=== PATIENT | male | born 1970 | race Asian ===

== ENCOUNTER 2024-03-09 14:42 | Inpatient (IN) | payer BC ==
[~2024-03-09] VITALS: Ht 167.6 cm; Wt 64.5 kg
[2024-03-09 15:04] LABS: BASOPHILS % (AUTO) 0.2 % (0.0-2.0); EOSINOPHILS % (AUTO) 1.7 % (1.0-6.0); HEMATOCRIT 40.7 % (41-53); HEMOGLOBIN 12.9 g/dL (13.5-17.5); LYMPHOCYTES # (AUTO) 3.2 K/uL (1.0-4.8); LYMPHOCYTES % (AUTO) 37.8 % (22.0-44.0); MEAN CORPUSCULAR HEMOGLOBIN 26.4 pg (26.0-34.0); MEAN CORPUSCULAR HGB CONC 31.8 G/dL (31.0-37.0); MEAN CORPUSCULAR VOLUME 83 fL (80-100); MONOCYTES # (AUTO) 0.6 K/uL (0.1-1.0); MONOCYTES % (AUTO) 7.4 % (2.0-9.0); NEUTROPHILS # (AUTO) 4.4 K/uL (1.8-7.7); NEUTROPHILS % (AUTO) 52.9 % (40.0-70.0); PLATELET COUNT (AUTO) 163 K/uL (150-450); RED BLOOD CELL COUNT(AUTO) 4.89 MIL/uL (4.50-5.90); RED CELL DISTRIBUTION WIDTH 14.2 % (11.5-14.5); WHITE BLOOD COUNT (AUTO) 8.4 K/uL (4.5-11.0)
[2024-03-09] MEDS ORDERED: LABETALOL HCL 5 MG/ML 20 ML VIAL IVP PRN ×2 (15:15→16:00)
[2024-03-09] MEDS ORDERED: NiCARDipine HCL 25 MG in SODIUM CHLORIDE 0.9% 240 ML IV PRN ×2 (15:15→16:00)
[2024-03-09] MEDS ORDERED: SODIUM CHLORIDE 0.9% 100 ML ONE (15:16)
[2024-03-09] MEDS ORDERED: 0.9% SODIUM CHLORIDE 10 ML SYRINGE IVP ONE (15:16)
[2024-03-09] MEDS ORDERED: TENECTEPLASE 50 MG/10 ML KIT IVP ONE ×2 (15:16→16:01)
[2024-03-09] MEDS ORDERED: IOHEXOL 300 MG/ML 100 ML VIAL ONE (15:16)
[2024-03-09 15:17] LABS: PROTHROMBIN TIME 10.9 SEC (9.4-11.6)
[2024-03-09] MEDS: TENECTEPLASE PER STROKE PROTOCOL CLINICAL ONE ×2 (15:18→16:08)
[2024-03-09] MEDS: -PHARMACY NOTE- MISC SCH ×2 (15:18→16:09)
[2024-03-09 15:22] LABS: ANION GAP 11 mmol/L (8-16); CALCIUM, TOTAL 8.2 mg/dL (8.8-10.5); CARBON DIOXIDE 26 mmol/L (22-29); CHLORIDE 100 mmol/L (98-107); GLOMERULAR FILTR. RATE CALC > 60 mL/min (>60); GLUCOSE,RANDOM 92 mg/dL (70-110); POTASSIUM 3.6 mmol/L (3.5-5.1); SODIUM SERUM 137 mmol/L (136-145); UREA NITROGEN, BLOOD 22 mg/dL (7-18)
[2024-03-09 15:27] LABS: ALANINE AMINOTRANSFERASE 23 U/L (12-78); ALBUMIN 3.7 g/dL (3.4-5.0); ALKALINE PHOSPHATASE 52 U/L (46-116); ASPARTATE AMINOTRANSFERASE 25 U/L (15-37); BILIRUBIN,TOTAL 0.4 mg/dL (0.1-1.0); CHOL/HDL RATIO 2.9 (4.2-7.3); CHOLESTEROL 198 mg/dL (131-200); HDL CHOLESTEROL 69 mg/dL (40-60); LDL CHOL (CALC.) 108 mg/dL (0-130); TOTAL PROTEIN, SERUM 6.8 g/dL (6.4-8.2); TRIGLYCERIDES 107 mg/dL (15-150)
[2024-03-09] MEDS: ASPIRIN 325 MG TABLET PO ONE (15:35)
[2024-03-09] MEDS: CLOPIDOGREL BISULFATE 75 MG TABLET PO ONE (15:35)
[2024-03-09 15:46] LABS: TROPONIN I-HIGH SENSITIVITY 20 ng/L (<76)
[2024-03-09] MEDS: TENECTEPLASE 50 MG/10 ML KIT IVP ONE (16:15)
[2024-03-09] MEDS ORDERED: ONDANSETRON HCL 4 MG/2 ML VIAL IVP PRN (19:00)
[2024-03-09] MEDS ORDERED: ACETAMINOPHEN 325 MG TABLET PO PRN (19:00)
[2024-03-09] MEDS: DOCUSATE SODIUM 100 MG CAPSULE PO SCH (20:15)
[2024-03-09] MEDS: ATORVASTATIN CALCIUM 40 MG TABLET PO SCH (20:17)
[2024-03-09 20:45] VITALS: O2SAT 98
[2024-03-09 21:13] LABS: TROPONIN I-HIGH SENSITIVITY 23 ng/L (<76)
[2024-03-09] MEDS: CHLORHEXIDINE GLUCONATE 2% TOWELETTE [2'S/6'S] TP SCH (22:00)
[2024-03-09 23:55] LABS: TROPONIN I-HIGH SENSITIVITY 21 ng/L (<76)
[2024-03-10] VITALS: BP 100/63; PULSE 48; RESP 14; TEMP 98.1; O2SAT 98
[2024-03-10 04:00] VITALS: BP 116/79; PULSE 47; RESP 16; TEMP 97.7; O2SAT 97
[2024-03-10 06:20] LABS: BASOPHILS % (AUTO) 0.3 % (0.0-2.0); EOSINOPHILS % (AUTO) 0.7 % (1.0-6.0); HEMATOCRIT 42.5 % (41-53); HEMOGLOBIN 13.9 g/dL (13.5-17.5); LYMPHOCYTES % (AUTO) 24.4 % (22.0-44.0); MEAN CORPUSCULAR HEMOGLOBIN 26.9 pg (26.0-34.0); MEAN CORPUSCULAR HGB CONC 32.7 G/dL (31.0-37.0); MEAN CORPUSCULAR VOLUME 82 fL (80-100); MONOCYTES # (AUTO) 0.6 K/uL (0.1-1.0); NEUTROPHILS # (AUTO) 5.5 K/uL (1.8-7.7); NEUTROPHILS % (AUTO) 67.6 % (40.0-70.0); PLATELET COUNT (AUTO) 178 K/uL (150-450); RED BLOOD CELL COUNT(AUTO) 5.16 MIL/uL (4.50-5.90); RED CELL DISTRIBUTION WIDTH 14.2 % (11.5-14.5); WHITE BLOOD COUNT (AUTO) 8.1 K/uL (4.5-11.0)
[2024-03-10 06:34] LABS: TROPONIN I-HIGH SENSITIVITY 23 ng/L (<76)
[2024-03-10 06:39] LABS: ANION GAP 7 mmol/L (8-16); CALCIUM, TOTAL 8.1 mg/dL (8.8-10.5); CARBON DIOXIDE 27 mmol/L (22-29); CHLORIDE 103 mmol/L (98-107); CHOLESTEROL 207 mg/dL (131-200); CREATININE 0.76 mg/dL (0.60-1.30); GLOMERULAR FILTR. RATE CALC > 60 mL/min (>60); GLUCOSE,RANDOM 83 mg/dL (70-110); POTASSIUM 3.8 mmol/L (3.5-5.1); SODIUM SERUM 137 mmol/L (136-145); TRIGLYCERIDES 25 mg/dL (15-150); UREA NITROGEN, BLOOD 13 mg/dL (7-18)
[2024-03-10 06:52] LABS: CHOL/HDL RATIO 2.8 (4.2-7.3); HDL CHOLESTEROL 75 mg/dL (40-60); LDL CHOL (CALC.) 127 mg/dL (0-130)
[2024-03-10 08:00] VITALS: BP 121/75; PULSE 49; RESP 16; TEMP 98.3; O2SAT 92
[2024-03-10 12:00] VITALS: BP 131/89; PULSE 61; RESP 12; TEMP 98.6; O2SAT 99
[2024-03-10 16:00] VITALS: BP 118/77; PULSE 54; RESP 16; TEMP 97.8; O2SAT 100
[2024-03-10 20:00] VITALS: BP 112/73; PULSE 57; RESP 19; TEMP 98.3; O2SAT 96
[2024-03-11] VITALS (7 sets, daily range): BP systolic 101–142; BP diastolic 58–89; PULSE 54–107; RESP 15–24; TEMP 98–98.9; O2SAT 95–100
[2024-03-11 06:30] LABS: BASOPHILS % (AUTO) 0.3 % (0.0-2.0); EOSINOPHILS % (AUTO) 1.1 % (1.0-6.0); HEMATOCRIT 46.3 % (41-53); HEMOGLOBIN 15.2 g/dL (13.5-17.5); LYMPHOCYTES # (AUTO) 1.6 K/uL (1.0-4.8); LYMPHOCYTES % (AUTO) 19.3 % (22.0-44.0); MEAN CORPUSCULAR HEMOGLOBIN 26.9 pg (26.0-34.0); MEAN CORPUSCULAR HGB CONC 32.9 G/dL (31.0-37.0); MEAN CORPUSCULAR VOLUME 82 fL (80-100); MONOCYTES # (AUTO) 0.7 K/uL (0.1-1.0); MONOCYTES % (AUTO) 8.5 % (2.0-9.0); NEUTROPHILS # (AUTO) 5.9 K/uL (1.8-7.7); NEUTROPHILS % (AUTO) 70.8 % (40.0-70.0); PLATELET COUNT (AUTO) 177 K/uL (150-450); RED BLOOD CELL COUNT(AUTO) 5.67 MIL/uL (4.50-5.90); RED CELL DISTRIBUTION WIDTH 14.4 % (11.5-14.5); WHITE BLOOD COUNT (AUTO) 8.4 K/uL (4.5-11.0)
[2024-03-11 06:31] LABS: ANION GAP 7 mmol/L (8-16); CALCIUM, TOTAL 8.5 mg/dL (8.8-10.5); CARBON DIOXIDE 29 mmol/L (22-29); CHLORIDE 101 mmol/L (98-107); CREATININE 0.91 mg/dL (0.60-1.30); GLOMERULAR FILTR. RATE CALC > 60 mL/min (>60); GLUCOSE,RANDOM 95 mg/dL (70-110); POTASSIUM 4.3 mmol/L (3.5-5.1); SODIUM SERUM 137 mmol/L (136-145); UREA NITROGEN, BLOOD 16 mg/dL (7-18)
[2024-03-11] MEDS: CLOPIDOGREL BISULFATE 75 MG TABLET PO SCH (08:55)
[2024-03-11] MEDS: ASPIRIN 81 MG CHEWABLE TABLET PO SCH (08:55)
[2024-03-12 04:19] VITALS: BP 123/76; PULSE 51; RESP 18; TEMP 97.4; O2SAT 96
[2024-03-12 07:44] VITALS: BP 131/95; PULSE 64; RESP 18; TEMP 97.3; O2SAT 100
[2024-03-12] MEDS ORDERED: AMLO2.5T96 PO (11:56)
[2024-03-12] MEDS ORDERED: ATOR40TA71 PO (11:56)
[2024-03-12] MEDS ORDERED: CLOP75TA60 PO (11:56)
[2024-03-12] MEDS ORDERED: ASPI-1450 PO (11:56)
[2024-03-12 12:01] VITALS: BP 119/77; PULSE 66; RESP 17; TEMP 98.1; O2SAT 98
[2024-03-12] MEDS: AmLODIPine BESYLATE 5 MG TABLET PO ONE (13:11)
== END 2024-03-12 14:30 | disposition home health service (06) | DRG 62 ==
LOC: EMS 14:42 → EDH 18:56 → ICU 21:00 → 5S 03-11 15:11
PROVIDERS: ADMIT Internal Medicine; ATTEND Internal Medicine
DX: I63.9 Cerebral infarction, unspecified (principal); G81.94 Hemiplegia, unspecified affecting left nondominant side; E83.51 Hypocalcemia; E78.5 Hyperlipidemia, unspecified; D64.9 Anemia, unspecified; Z82.3 Family history of stroke
CPT/HCPCS: 70496; 70498; 70551; 71045; 80048; 80053; 80061; 82948; 83735; 84484; 85025; 85610; 85730; 87081; 87481; 92610; 93005; 93306; 97112; 97161; 97166; 97530; 97535; 99291; J3101; J3490; J7050; Q9967; 36415-L1; 36415-TC; 70450; 70450-TC